=== PATIENT | male | born 1990 | race African-American/Black ===

== ENCOUNTER 2019-12-21 10:29 | Emergency (ER) | payer OTHER ==
[~2019-12-21] VITALS: Ht 175.2 cm; Wt 95.3 kg
[~2019-12-21 10:29] MED LIST: IBU-8800 MG PO; MOTRIN600 MG PO; Meclizine25 MG PO; Motrin,Rufen800 MG PO; NKHM; TOBREX OPHTH S2.5 ML OPH; VOLTAREN50 M1 PO; ZOFRAN ODT4 MG SL
[2019-12-21] MEDS ORDERED: PREDNISONE50 MG PO (11:22)
[2019-12-21] MEDS ORDERED: CYCLOBENZAPRINE10 MG PO (11:22)
== END 2019-12-21 11:15 | disposition home or self-care (01) ==
LOC: ED 10:29
DX: M54.42 Lumbago with sciatica, left side (principal)

== ENCOUNTER → 2020-01-26 | Outpatient (CLI) | payer OTHER ==
[~2020-01-26] MED LIST changes: +CYCLOBENZAPRINE10 MG PO; +PREDNISONE50 MG PO
== END | disposition home or self-care (01) ==
LOC: COVID19 00:50
DX: Z03.818 Encounter for observation for suspected exposure to other biological agents ruled out (principal)

== ENCOUNTER 2020-04-27 08:50 | Inpatient (IN) | payer OTHER ==
[~2020-04-27] VITALS: Ht 175.2 cm; Wt 95.3 kg
[2020-04-27] VITALS (8 sets, daily range): BP systolic 109–136; BP diastolic 50–85
[2020-04-27 10:45] LABS: BASO # 0.1 10*3/uL (0.0-0.1); BASO % 0.5 % (0.0-1.0); EOS # 0.1 10*3/uL (0.0-0.4); EOS % 0.6 % (1.0-4.0); LYMPH # 1.5 10*3/uL (1.3-4.4); LYMPH % 13.8 % (27.0-41.0); MEAN CELL VOLUME 86.2 fl (80.0-94.0); MEAN CORPUSCULAR HGB 28.3 pg (27.0-31.0); MEAN CORPUSCULAR HGB CONC 32.8 g/dl (33.0-37.0); MEAN PLATELET VOLUME 12.2 fl (9.6-12.3); MONO # 0.8 10*3/uL (0.1-1.0); NEUT # 8.3 10*3/uL (2.3-7.9); NEUT % 77.9 % (47.0-73.0); PLATELET COUNT AUTOMATED 137 10*3/uL (130-400); RED CELL DISTRI WIDTH 12.5 % (0-14.5); WHITE BLOOD COUNT 10.7 10*3/uL (4.8-10.8)
[2020-04-27 10:56] LABS: ALBUMIN 4.1 gm/dl (3.1-4.5); ALKALINE PHOSPHATASE 73 U/L (45-117); BUN 11 mg/dl (7-24); CHLORIDE 107 mmol/L (98-107); CREATININE 1.17 mg/dL (0.70-1.30); POTASSIUM 4.2 mmol/L (3.5-5.1); SGOT/AST 17 IU/L (3-35); SGPT/ALT 32 U/L (12-78); SODIUM 141 mmol/L (136-145); TOTAL PROTEIN 7.6 gm/dL (6.4-8.2)
[2020-04-28 01:49] VITALS: BP 113/67
[2020-04-28 06:48] VITALS: BP 111/57
[2020-04-28 06:55] LABS: BASO % 0.2 % (0.0-1.0); EOS # 0.1 10*3/uL (0.0-0.4); EOS % 0.6 % (1.0-4.0); HEMATOCRIT 50.9 % (42.0-52.0); LYMPH # 1.9 10*3/uL (1.3-4.4); LYMPH % 22.9 % (27.0-41.0); MEAN CORPUSCULAR HGB 28.4 pg (27.0-31.0); MEAN PLATELET VOLUME 12.7 fl (9.6-12.3); MONO # 0.8 10*3/uL (0.1-1.0); MONO % 9.5 % (3.0-9.0); NEUT # 5.4 10*3/uL (2.3-7.9); NEUT % 66.6 % (47.0-73.0); PLATELET COUNT AUTOMATED 128 10*3/uL (130-400); RED BLOOD COUNT 5.92 10*6/uL (4.50-5.90); RED CELL DISTRI WIDTH 12.6 % (0-14.5); WHITE BLOOD COUNT 8.1 10*3/uL (4.8-10.8)
[2020-04-28 07:29] LABS: ALBUMIN 3.7 gm/dl (3.1-4.5); ALKALINE PHOSPHATASE 68 U/L (45-117); BUN 12 mg/dl (7-24); CHLORIDE 107 mmol/L (98-107); CREATININE 1.21 mg/dL (0.70-1.30); POTASSIUM 3.9 mmol/L (3.5-5.1); SGOT/AST 23 IU/L (3-35); SGPT/ALT 27 U/L (12-78); SODIUM 141 mmol/L (136-145); TOTAL PROTEIN 7.2 gm/dL (6.4-8.2)
[2020-04-28 09:11] VITALS: BP 107/88
[2020-04-28 15:01] VITALS: BP 126/67
== END 2020-04-28 23:16 | disposition home or self-care (01) | DRG 143 ==
LOC: ED 08:50 → EDHOLD 12:45 → 5E 04-28 11:35 → EDHOLD 04-28 11:35
PROVIDERS: Nurse Practitioner Family; Student in an Organized Health Care Education/Training Program; ADMIT Family Medicine; ATTEND Family Medicine
PROC: 0W9930Z Drainage of Right Pleural Cavity with Drainage Device, Percutaneous Approach (ICD-10-PCS; principal; 2020-04-27)
DX: J93.11 Primary spontaneous pneumothorax (principal); R03.0 Elevated blood-pressure reading, without diagnosis of hypertension; D72.9 Disorder of white blood cells, unspecified; F12.90 Cannabis use, unspecified, uncomplicated; I49.8 Other specified cardiac arrhythmias; E66.09 Other obesity due to excess calories; J98.2 Interstitial emphysema; Z80.1 Family history of malignant neoplasm of trachea, bronchus and lung; Z79.52 Long term (current) use of systemic steroids; Z68.31 Body mass index [BMI] 31.0-31.9, adult; Z82.5 Family history of asthma and other chronic lower respiratory diseases

== ENCOUNTER → 2021-01-03 | Outpatient (CLI) | payer OTHER | END | disposition home or self-care (01) | LOC: RAD 10:53 | PROVIDERS: ATTEND Family Medicine | DX: R06.02 Shortness of breath (principal) ==

== ENCOUNTER → 2021-03-13 | Outpatient (CLI) | payer OTHER | END | disposition home or self-care (01) | LOC: RAD 13:41 | PROVIDERS: ATTEND Family Medicine | DX: R06.02 Shortness of breath (principal) ==

== ENCOUNTER → 2021-06-13 | Outpatient (CLI) | payer OTHER | LOC: COVID19 15:42 | PROVIDERS: ATTEND Internal Medicine | DX: Z11.52 Encounter for screening for COVID-19 (principal); Z20.822 Contact with and (suspected) exposure to COVID-19 ==

== ENCOUNTER → 2022-04-04 | Outpatient (CLI) | payer OTHER | END | disposition home or self-care (01) | LOC: RAD 14:10 | PROVIDERS: ATTEND Family Medicine | DX: R06.02 Shortness of breath (principal) ==

== ENCOUNTER 2023-01-07 14:02 | Emergency (ER) | payer OTHER ==
[~2023-01-07] VITALS: Ht 177.8 cm; Wt 99.8 kg
[2023-01-07 15:14] LABS: BASO % 0.4 % (0.0-1.0); EOS # 0.1 10*3/uL (0.0-0.4); EOS % 1.3 % (1.0-4.0); HEMATOCRIT 47.3 % (42.0-52.0); LYMPH # 1.9 10*3/uL (1.3-4.4); LYMPH % 35.7 % (27.0-41.0); MEAN CELL VOLUME 83.7 fl (80.0-94.0); MEAN CORPUSCULAR HGB 28.5 pg (27.0-31.0); MEAN PLATELET VOLUME 12.1 fl (9.6-12.3); MONO # 0.5 10*3/uL (0.1-1.0); MONO % 9.7 % (3.0-9.0); NEUT # 2.8 10*3/uL (2.3-7.9); NEUT % 52.5 % (47.0-73.0); PLATELET COUNT AUTOMATED 139 10*3/uL (130-400); RED BLOOD COUNT 5.65 10*6/uL (4.50-5.90); RED CELL DISTRI WIDTH 12.7 % (0-14.5); WHITE BLOOD COUNT 5.2 10*3/uL (4.8-10.8)
[2023-01-07 15:37] LABS: ALKALINE PHOSPHATASE 69 U/L (46-116); BUN 9 mg/dl (9-23); CHLORIDE 105 mmol/L (98-107); POTASSIUM 3.7 mmol/L (3.4-5.1); SGPT/ALT 39 U/L (10-49); TOTAL PROTEIN 7.1 gm/dL (6.0-8.0)
== END 2023-01-07 16:09 | disposition home or self-care (01) ==
LOC: ED 14:02
PROVIDERS: Student in an Organized Health Care Education/Training Program
DX: E86.0 Dehydration (principal)

== ENCOUNTER → 2023-01-10 | Outpatient (CLI) | payer OTHER ==
[2023-01-10 11:04] LABS: BASO % 0.4 % (0.0-1.0); EOS # 0.1 10*3/uL (0.0-0.4); EOS % 0.9 % (1.0-4.0); HEMATOCRIT 47.4 % (42.0-52.0); LYMPH # 2.1 10*3/uL (1.3-4.4); LYMPH % 38.7 % (27.0-41.0); MEAN CORPUSCULAR HGB CONC 34.2 g/dl (33.0-37.0); MEAN PLATELET VOLUME 11.9 fl (9.6-12.3); MONO # 0.5 10*3/uL (0.1-1.0); MONO % 8.4 % (3.0-9.0); NEUT # 2.8 10*3/uL (2.3-7.9); NEUT % 51.4 % (47.0-73.0); PLATELET COUNT AUTOMATED 164 10*3/uL (130-400); RED BLOOD COUNT 5.78 10*6/uL (4.50-5.90); RED CELL DISTRI WIDTH 12.6 % (0-14.5); WHITE BLOOD COUNT 5.5 10*3/uL (4.8-10.8)
[2023-01-10 11:11] LABS: BILIRUBIN Negative (Negative); BLOOD Negative (Negative); CLARITY Clear (Clear); COLOR Yellow (Yellow); GLUCOSE Negative (Negative); KETONE Trace (Negative); LEUKO ESTERASE Negative (Negative); NITRITE Negative (Negative)
[2023-01-10 11:35] LABS: ALKALINE PHOSPHATASE 74 U/L (46-116); BUN 9 mg/dl (9-23); CHLORIDE 106 mmol/L (98-107); CHOLESTEROL 194 mg/dL (<200); GAMMA GLUTAMYL TRANSPEPTIDASE 35 U/L (0-73); LDL CHOLESTEROL 122 mg/dL (9-159); POTASSIUM 3.8 mmol/L (3.4-5.1); SGPT/ALT 37 U/L (10-49); T3 UPTAKE 21.2 % (22.4-36.7); THYROXINE (T4) TOTAL 8.2 ug/dl (4.5-10.9); TOTAL PROTEIN 7.4 gm/dL (6.0-8.0); TRIGLYCERIDES 148 mg/dl (<150); URIC ACID 5.7 mg/dL (3.7-9.2)
[2023-01-10 11:45] LABS: VITAMIN D, 25-HYDROXY 34.5 ng/mL (30-100)
[2023-01-11 13:07] LABS: ANTI-DSDNA ANTIBODIES <1 IU/mL (0-9)
== END | disposition home or self-care (01) ==
LOC: LAB 10:38
PROVIDERS: ATTEND Family Medicine
DX: E78.5 Hyperlipidemia, unspecified (principal); E55.9 Vitamin D deficiency, unspecified; R79.89 Other specified abnormal findings of blood chemistry; R53.83 Other fatigue; R74.8 Abnormal levels of other serum enzymes

== ENCOUNTER 2024-04-13 19:57 | Emergency (ER) | payer OTHER ==
[~2024-04-13] VITALS: Ht 177.8 cm; Wt 106.6 kg
[2024-04-13] MEDS ORDERED: Ondansetron Hydrochloride 4 MG TAB SL ONE (20:50)
[2024-04-13 20:59] LABS: HEMATOCRIT 49.6 % (42.0-52.0); MANUAL DIFF REFLEX YES; MEAN CELL VOLUME 84.2 fl (80.0-94.0); MEAN CORPUSCULAR HGB 27.8 pg (27.0-31.0); MEAN CORPUSCULAR HGB CONC 33.1 g/dl (33.0-37.0); MEAN PLATELET VOLUME 12.4 fl (9.6-12.3); PLATELET COUNT AUTOMATED 159 10*3/uL (130-400); RED BLOOD COUNT 5.89 10*6/uL (4.50-5.90); RED CELL DISTRI WIDTH 12.3 % (0-14.5); WHITE BLOOD COUNT 14.7 10*3/uL (4.8-10.8)
[2024-04-13 21:17] LABS: BUN 11 mg/dl (9-23); CHLORIDE 104 mmol/L (98-107); POTASSIUM 4.3 mmol/L (3.4-5.1)
[2024-04-13 21:42] LABS: TOTAL CELLS COUNTED 100 #CELLS
[2024-04-13 21:43] LABS: PLATELET SUFFICIENCY NORMAL (NORMAL)
[2024-04-14] MEDS ORDERED: PROTONIX40 MG PO (01:09)
[2024-04-14] MEDS ORDERED: Pantoprazole Sodium 20 MG TAB PO ONE (01:10)
== END 2024-04-14 01:19 | disposition home or self-care (01) ==
LOC: ED 19:57
PROVIDERS: Emergency Medicine
DX: R11.10 Vomiting, unspecified (principal); F12.90 Cannabis use, unspecified, uncomplicated